=== PATIENT | female | born 1990 | race Caucasian/White ===

== ENCOUNTER 2017-06-14 09:50 | Emergency (ER) | payer MEDICAID ==
[~2017-06-14] VITALS: Ht 160 cm; Wt 100.0 kg
[~2017-06-14 09:50] MED LIST: AMOX500C42 PO
[2017-06-14] MEDS ORDERED: TAM75C PO (10:41)
[2017-06-14 12:07] VITALS: BP 140/81
== END 2017-06-14 12:08 | disposition home or self-care (01) ==
LOC: ER 09:52
DX: J02.9 Acute pharyngitis, unspecified (principal); R11.10 Vomiting, unspecified; H92.09 Otalgia, unspecified ear; R61 Generalized hyperhidrosis; R09.89 Other specified symptoms and signs involving the circulatory and respiratory systems; Z79.899 Other long term (current) drug therapy
CPT/HCPCS: 99283

== ENCOUNTER 2017-10-02 10:04 | Emergency (ER) | payer MEDICAID ==
[~2017-10-02] VITALS: Ht 160 cm; Wt 94.0 kg
[2017-10-02 10:17] VITALS: BP 132/71
[2017-10-02] MEDS ORDERED: dexamethasone 4mg tablet PO ONE (10:55)
[2017-10-02] MEDS ORDERED: FLUT16SP2 BOTHNARES (10:56)
== END 2017-10-02 11:16 | disposition home or self-care (01) ==
LOC: ER 10:04
DX: J30.2 Other seasonal allergic rhinitis (principal)
CPT/HCPCS: 99283; J8540

== ENCOUNTER 2018-03-26 19:05 | Emergency (ER) | payer MEDICAID ==
[~2018-03-26] VITALS: Ht 160 cm; Wt 94.0 kg
[~2018-03-26 19:05] MED LIST changes: +FLUT16SP2 BOTHNARES
[2018-03-26 19:55] LABS: BASOPHILS % (AUTO) 0.2 % (0-1); EOSINOPHILS # (AUTO) 0.2 X10'3 (0-0.9); EOSINOPHILS % (AUTO) 1.3 % (0-6); HEMATOCRIT 46.4 % (35.0-45.0); HEMOGLOBIN 15.3 g/dl (12.0-16.0); LYMPHOCYTES # (AUTO) 1.5 X10'3 (1.1-4.8); LYMPHOCYTES % (AUTO) 9.9 % (21-51); MEAN CORPUSCULAR HEMOGLOBIN 28.1 PG (27.0-31.0); MEAN CORPUSCULAR VOLUME 84.9 FL (78-98); MEAN PLATELET VOLUME 9.5 FL (7.4-10.4); MONOCYTES # (AUTO) 1.1 X10'3 (0-0.9); MONOCYTES % (AUTO) 7.5 % (2-12); NEUTROPHILS # (AUTO) 12.4 X10'3 (1.8-7.7); NEUTROPHILS % (AUTO) 81.1 % (42-75); PLATELET COUNT 322 X10'3 (140-440); RED BLOOD COUNT 5.46 X10'6 (4.20-5.60); RED CELL DISTRIBUTION WIDTH 13.2 % (11.5-14.5); WHITE BLOOD COUNT 15.3 X10'3 (4.5-11.0)
[2018-03-26 19:55] LABS: URINE HCG NEGATIVE (NEG)
[2018-03-26] MEDS ORDERED: ondansetron/PF 4mg/2ml inj IV ONE (20:00)
[2018-03-26] MEDS ORDERED: normal saline 1000ML IV soln IVB ONE (20:00)
[2018-03-26 20:15] LABS: PROTHROMBIN TIME 10.3 SECONDS (9.0-12.0)
[2018-03-26 20:16] LABS: ALANINE AMINOTRANSFERASE 168 U/L (12-78); ALBUMIN 3.7 G/DL (3.4-5.0); ALBUMIN/GLOBULIN RATIO 0.9 (1.1-1.5); ALKALINE PHOSPHATASE 63 IU/L (46-116); ANION GAP 8 (8-16); ASPARTATE AMINO TRANSFERASE 55 U/L (10-37); BILIRUBIN,TOTAL 0.7 MG/DL (0.1-1.0); BLOOD UREA NITROGEN 14 MG/DL (7-18); BUN/CREATININE RATIO 17.3 (6.6-38.0); CALCIUM 8.2 MG/DL (8.5-10.1); CHLORIDE 102 MMOL/L (99-107); CREATININE 0.81 MG/DL (0.40-0.90); GLUCOSE 106 MG/DL (70-104); LIPASE 109 U/L (73-393); POTASSIUM 3.7 MMOL/L (3.5-5.1); SODIUM 138 MMOL/L (135-145); TOTAL CARBON DIOXIDE 28.4 MMOL/L (24-32); eGFR 85 ML/MIN
[2018-03-26 20:41] LABS: CLARITY,URINE CLEAR (Clear); COLOR,URINE YELLOW (Yellow); GLUCOSE, URINE NEGATIVE (Neg); KETONES,URINE 15 mg/dl (Neg); LEUKOCYTE ESTERASE ,URINE NEGATIVE (Neg); NITRITES, URINE NEGATIVE (Neg); OCCULT BLOOD,URINE NEGATIVE (Neg); PH,URINE 5.5 (4.8-8.0); PROTEIN,URINE NEGATIVE (Neg); UROBILINOGEN,URINE 0.2 E.U/dL (0.2-1.0)
[2018-03-26 20:47] LABS: UA COLLECTION TYPE CLN CATCH MIDSTREAM
[2018-03-26] MEDS ORDERED: FAMO40TA73 PO (21:26)
[2018-03-26] MEDS ORDERED: ONDA4TAB9 PO (21:26)
[2018-03-26] MEDS ORDERED: proCHLORperazine 10 MG/2 ml inj IV ONE (21:30)
[2018-03-26 21:46] VITALS: BP 111/70
== END 2018-03-26 21:47 | disposition home or self-care (01) ==
LOC: ER 19:06
DX: K52.9 Noninfective gastroenteritis and colitis, unspecified (principal); E86.0 Dehydration; F17.200 Nicotine dependence, unspecified, uncomplicated
CPT/HCPCS: 36415; 76700; 80053; 81003; 81025; 83690; 85025; 85610; 96361; 96374; 96375; 99285; J0780; J2405

== ENCOUNTER 2018-08-15 19:15 | Emergency (ER) | payer MEDICAID ==
[~2018-08-15] VITALS: Ht 160 cm; Wt 92.9 kg
[~2018-08-15 19:15] MED LIST changes: -AMOX500C42 PO; +FAMO40TA73 PO; -FLUT16SP2 BOTHNARES; +ONDA4TAB6 PO
[2018-08-15] MEDS ORDERED: TAM75C PO (22:13)
[2018-08-15] MEDS ORDERED: oseltamivir phos 75mg capsule PO ONE (22:15)
[2018-08-15] MEDS ORDERED: PHE12.5T PO (22:18)
[2018-08-15] MEDS ORDERED: normal saline 1000ml 1,000 ML IV ONE (22:20)
[2018-08-15] MEDS ORDERED: acetaminophen 325mg tablet PO ONE (22:20)
[2018-08-15] MEDS ORDERED: ondansetron/PF 4mg/2ml inj IV ONE (22:20)
[2018-08-15 23:11] VITALS: BP 105/69
== END 2018-08-15 23:17 | disposition home or self-care (01) ==
LOC: ER 19:16
DX: O21.8 Other vomiting complicating pregnancy (principal); O26.891 Other specified pregnancy related conditions, first trimester; B34.9 Viral infection, unspecified; O24.111 Pre-existing type 2 diabetes mellitus, in pregnancy, first trimester; E11.9 Type 2 diabetes mellitus without complications; Z3A.12 12 weeks gestation of pregnancy; Z79.899 Other long term (current) drug therapy
CPT/HCPCS: 96374; 99283; J2405; J7030

== ENCOUNTER 2020-10-26 01:05 | Emergency (ER) | payer MEDICAID ==
[~2020-10-26] VITALS: Ht 160 cm; Wt 109.1 kg
[~2020-10-26 01:05] MED LIST changes: +PROM12.512 PO
[2020-10-26 01:08] VITALS: BP 141/105
[2020-10-26] MEDS ORDERED: PRED20TA PO (01:25)
[2020-10-26] MEDS ORDERED: dexamethasone 4mg tablet PO ONE (01:25)
[2020-10-26] MEDS ORDERED: BETA15CR4 TOP (01:25)
[2020-10-26] MEDS ORDERED: HYDR-3686 PO (01:25)
== END 2020-10-26 01:48 | disposition home or self-care (01) ==
LOC: ER 01:06
DX: L23.9 Allergic contact dermatitis, unspecified cause (principal); E11.9 Type 2 diabetes mellitus without complications; Z72.89 Other problems related to lifestyle; Z79.899 Other long term (current) drug therapy
CPT/HCPCS: 99283

== ENCOUNTER 2020-11-03 14:21 | Emergency (ER) | payer MEDICAID ==
[~2020-11-03] VITALS: Ht 160 cm; Wt 107.0 kg
[~2020-11-03 14:21] MED LIST changes: +BETA15CR4 TOP; +PRED20TA PO
[2020-11-03 14:35] VITALS: BP 126/89
[2020-11-03] MEDS ORDERED: LORA-835 PO (16:23)
[2020-11-03] MEDS ORDERED: FLUT16SP2 BOTHNARES (16:23)
== END 2020-11-03 17:11 | disposition home or self-care (01) ==
LOC: ER 14:22
DX: J30.9 Allergic rhinitis, unspecified (principal); E11.9 Type 2 diabetes mellitus without complications
CPT/HCPCS: 99283

== ENCOUNTER 2020-12-08 13:49 | Emergency (ER) | payer MEDICAID ==
[~2020-12-08] VITALS: Ht 160 cm; Wt 102.5 kg
[~2020-12-08 13:49] MED LIST changes: +FLUT16SP2 BOTHNARES; +LORA-835 PO; -PRED20TA PO
[2020-12-08 14:02] VITALS: BP 136/98
[2020-12-08] MEDS ORDERED: acetaminophen 325mg tablet PO ONE (16:25)
[2020-12-08] MEDS ORDERED: ketorolac trometh. 30mg/ml inj. IM ONE (16:25)
--- NOTE | 2020-12-08 17:30 | NUR ---
Patient seen and assessed by provider.
== END 2020-12-08 17:51 | disposition home or self-care (01) ==
LOC: ER 13:50
DX: S09.90XA Unspecified injury of head, initial encounter (principal); R42 Dizziness and giddiness; E11.9 Type 2 diabetes mellitus without complications; V87.7XXA Person injured in collision between other specified motor vehicles (traffic), initial encounter; Y93.89 Activity, other specified; Y92.89 Other specified places as the place of occurrence of the external cause; Y99.8 Other external cause status
CPT/HCPCS: 96372; 99283; J1885

== ENCOUNTER 2021-06-23 07:43 | Emergency (ER) | payer MEDICAID ==
[~2021-06-23] VITALS: Ht 160 cm; Wt 107.0 kg
[2021-06-23 08:18] VITALS: BP 129/84
== END 2021-06-23 09:29 | disposition left against medical advice (07) ==
LOC: ER 07:44
DX: M79.673 Pain in unspecified foot (principal); Z53.21 Procedure and treatment not carried out due to patient leaving prior to being seen by health care provider

== ENCOUNTER 2024-07-16 08:42 | Emergency (ER) | payer MEDICAID ==
[~2024-07-16] VITALS: Ht 160 cm; Wt 101.4 kg
[2024-07-16 08:55] VITALS: BP 155/113; PULSE 103; RESP 16; O2SAT 97
[2024-07-16] MEDS ORDERED: ONDA-243 PO (10:19)
[2024-07-16 10:27] VITALS: TEMP 97.6
== END 2024-07-16 10:29 | disposition home or self-care (01) ==
LOC: ER 08:43
DX: R11.2 Nausea with vomiting, unspecified (principal); E11.9 Type 2 diabetes mellitus without complications; F17.210 Nicotine dependence, cigarettes, uncomplicated; Y90.9 Presence of alcohol in blood, level not specified
CPT/HCPCS: 99283

== ENCOUNTER 2024-07-20 12:36 | Emergency (ER) | payer MEDICAID ==
[~2024-07-20 12:36] MED LIST changes: +ONDA-243 PO
== END 2024-07-20 14:53 | disposition left against medical advice (07) ==
LOC: ER 12:36
DX: R05.9 Cough, unspecified (principal); R50.9 Fever, unspecified; J00 Acute nasopharyngitis [common cold]; Z53.21 Procedure and treatment not carried out due to patient leaving prior to being seen by health care provider

== ENCOUNTER 2024-07-28 01:20 | Emergency (ER) | payer MEDICAID ==
[~2024-07-28] VITALS: Ht 157.5 cm; Wt 102.7 kg
[2024-07-28 01:30] VITALS: BP 161/116; PULSE 106; TEMP 98; O2SAT 99
[2024-07-28 01:38] VITALS: RESP 16
== END 2024-07-28 03:28 | disposition left against medical advice (07) ==
LOC: ER 01:22
DX: R09.81 Nasal congestion (principal); J00 Acute nasopharyngitis [common cold]; R05.9 Cough, unspecified; E11.9 Type 2 diabetes mellitus without complications; Z79.52 Long term (current) use of systemic steroids; Z79.899 Other long term (current) drug therapy; Z53.21 Procedure and treatment not carried out due to patient leaving prior to being seen by health care provider

== ENCOUNTER 2024-12-21 15:08 | Emergency (ER) | payer MEDICAID ==
[~2024-12-21] VITALS: Ht 157.5 cm; Wt 91.0 kg
[2024-12-21 15:20] VITALS: BP 151/117; PULSE 110; RESP 19; O2SAT 97
[2024-12-21] MEDS ORDERED: LOSA50TA64 PO (15:44)
--- NOTE | 2024-12-21 15:44 | Physician Documentation ---
History of Present Illness ~ Chief Complaint: Medical Clearance Stated Complaint: HIGH BP Time Seen by MD: 15:24 Primary Medical Doctor: [facility] 34-year-old female who presents for medical clearance and treatment for hypertension. 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 Patient notes a long history of this, but has not currently on medication. She does have an upcoming appointment with primary care, but not for several weeks. She denies chest pain or shortness of breath. She reports that she overall feels well. Medication Reconciliation Allergies: Coded Allergies: No Known Allergies (Unverified , 12/21/24) Scheduled Betamethasone Dipropionate (Betamethasone Dipropionate), 1 APPLIC TOP Q12H Famotidine (Pepcid), 1 TAB PO DAILY Fluticasone Propionate (Flonase), 2 SPRAYS BOTHNARES DAILY Loratadine/Pseudoephedrine (Claritin-D 24 Hour Tablet), 1 TAB PO DAILY Losartan Potassium (Losartan Potassium), 1 TAB PO DAILY Ondansetron Hcl (Zofran), 1 TAB PO Q6H Promethazine Hcl (Phenergan), 1 TAB PO Q6H Scheduled PRN ONDANSETRON ODT 4mg tablet (Ondansetron Odt), 1 TAB PO Q6H PRN PRN for nausea/vomiting Past Medical History Past Medical History: Diabetes Past Surgical History: no surgical history Alcohol Use: Sober Drug Use: none Lives with: Family Lives In: Home Occupation: employed Review of Systems ROS As stated above in the HPI, otherwise all systems are reviewed and negative. Physical Exam Vital Signs: Temperature: 98.7, Heart Rate: 110, Respiratory Rate: 19, BP: 151/117, Pulse Oximetry: 97, Weight: 91.050 Physical Exam General: Alert, no apparent distress. Neck: Full range of motion. Respiratory: Lungs clear, no respiratory distress. Chest: No accessory muscle use. Cardiovascular: Regular rate and rhythm, no murmurs. Gastrointestinal: Soft, nontender, nondistended. Bowels sounds present. Extremities: Normal range of motion, no deformity. Neurologic: Oriented x4. Psychiatric: Normal mood and affect. Skin: Normal color, warm and dry. No edema, no ecchymosis. Progress Results/Orders Results/Orders Vital Signs 12/21/24 15:20 Temp 98.7 Pulse 110 Resp 19 B/P (MAP) 151/117 Pulse Ox 97 Medical Decision Making Differential Dx:Considerations: Include CHF, Include HTN, essential, Include HTN, accelerated, Include HTN, malignant, Include HTN, encephalopathy, Include medical noncompliance, Include medication withdrawal, Include pulmonary edema, Include renal failure, Include -induced Additional Information Well-appearing 34-year-old female with no symptoms pertinent to her history of hypertension. She does have an upcoming primary care appointment. She will be started on losartan 50 mg daily. She is cleared to warmth. She is to return if worse. Departure Time of Disposition: 15:42 Disposition: 01 HOME / SELF CARE / HOMELESS Impression: Primary Impression: General medical exam Additional Impression: Hypertension Discharge Instructions: Hypertension, Adult, Medical Screening Exam Additional Instructions: Medically cleared to return to work. Start the losartan daily. See your primary care provider soon. Return to the ER if worse at any time. Referrals: NO PRIMARY CARE PROVIDER (PCP) Prescriptions Losartan Potassium (Losartan Potassium) 50 Mg Tablet 1 TAB PO DAILY for 30 Days, #30 TAB 0 Refills Prov: RUPERTO CARRANZA NP 12/21/24 Education Educated: Patient Educated regarding: diagnosis, treatment, prognosis, need for follow up Signature Scribe Signature: x Attestation: The note accurately reflects work and decisions made by me.Ruperto Carranza - KARINA 12/21/24 15:46 RUPERTO CARRANZA NP Dec 21, 2024 15:44
[2024-12-21 15:48] VITALS: TEMP 98.7
== END 2024-12-21 15:53 | disposition home or self-care (01) ==
LOC: ER 15:09
DX: I10 Essential (primary) hypertension (principal); E11.9 Type 2 diabetes mellitus without complications; Z79.899 Other long term (current) drug therapy
CPT/HCPCS: 99283

== ENCOUNTER 2025-04-22 01:20 | Emergency (ER) | payer MEDICAID ==
[~2025-04-22] VITALS: Ht 160 cm; Wt 100.0 kg
[~2025-04-22 01:20] MED LIST changes: +LOSA50TA64 PO
[2025-04-22 01:21] VITALS: TEMP 97.6
--- NOTE | 2025-04-22 02:30 | Physician Documentation ---
History of Present Illness ~ Chief Complaint: Back Pain Stated Complaint: KNEE AND BACK PAIN Time Seen by MD: 02:24 Primary Medical Doctor: GUZMAN ROCA Patient presents to the emergency room with right-sided back pain and right knee pain. She states this started two days ago when she tried to lift her mother. 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 No bladder or bowel incontinence. No weakness or paresthesias of the lower extremities. She took ibuprofen a proximally 10 hours prior to arrival. Medication Reconciliation Allergies: Coded Allergies: No Known Allergies (Unverified , 04/22/25) Scheduled Betamethasone Dipropionate (Betamethasone Dipropionate), 1 APPLIC TOP Q12H Famotidine (Pepcid), 1 TAB PO DAILY Fluticasone Propionate (Flonase), 2 SPRAYS BOTHNARES DAILY Loratadine/Pseudoephedrine (Claritin-D 24 Hour Tablet), 1 TAB PO DAILY Losartan Potassium (Losartan Potassium), 1 TAB PO DAILY Ondansetron Hcl (Zofran), 1 TAB PO Q6H Promethazine Hcl (Phenergan), 1 TAB PO Q6H Scheduled PRN ONDANSETRON ODT 4mg tablet (Ondansetron Odt), 1 TAB PO Q6H PRN PRN for nausea/vomiting Past Medical History Past Medical History: Diabetes Past Surgical History: no surgical history Alcohol Use: Sober Drug Use: none Lives with: Family Lives In: Home Occupation: employed Review of Systems ROS All review of systems negative except as per HPI Physical Exam Physical Exam Vital Signs: Temperature: 97.6, Source: Temporal, Heart Rate: 105, Respiratory Rate: 15, BP: 171/119, Pulse Oximetry: 98, Weight: 100.000 Physical Exam General: Patient is sleeping, easily arousable in no acute distress Head: Normocephalic and atraumatic. Eyes: Conjunctival normal. EOMI. PERRL. ENT: Mucous membranes moist. Neck: Supple, trachea is midline. Chest: Clear to auscultation bilaterally without rales, rhonchi, or wheezes. There is no accessory muscle use or retractions. Cardiac: RRR without murmurs, gallops, or rubs. Extremities: Normal strength. Normal range of motion. No deformities or edema. No appreciable abnormality of the knees Back: No midline spinal or CVA tenderness. Tenderness to palpation to the left SI joint Progress Results/Orders Results/Orders Orders - FELIX CONWAY MD Knee, Complete (04/22/25 01:52) Ketorolac Trometh 15mg/Ml Vial (Toradol (04/22/25 02:30) Acetaminophen 325mg Tablet (Tylenol Tabl (04/22/25 02:30) Completed Orders - FELIX CONWAY MD Knee, Complete (04/22/25 01:52) Vital Signs 04/22/25 01:21 Temp 97.6 Pulse 105 Resp 15 B/P (MAP) 171/119 Pulse Ox 98 Medical Decision Making Additional information obtaine: old records Findings Patient presents to the emergency room for evaluation of left-sided back pain along with knee pain for the past few days. Differentials include but are not limited to musculoskeletal pain, pyelonephritis, kidney stone, soft tissue injury, muscle strain, arthritis. X-ray is reassuring of the knee. Given history and physical exam I do believe patient is suffering from a muscle strain and we will treat her accordingly. The need to avoid bedrest discussed. No signs of cauda equina Differential Dx:Considerations: Bowel obstruction Departure Disposition: HOME / SELF CARE / HOMELESS Impression: Primary Impression: Strain of lumbar region Condition: Stable Additional Instructions: Ibuprofen and Tylenol for pain. Ice may be of benefit. Referrals: NO PRIMARY CARE PROVIDER (PCP) Prescriptions Cyclobenzaprine* (Cyclobenzaprine*) 10 Mg Tablet 1 TAB PO Q8H for muscle spasms for 10 Days, #30 TAB 0 Refills Prov: FELIX CONWAY MD 04/22/25 Signature Scribe Signature: No scribe Attestation: The note accurately reflects work and decisions made by me.Felix Conway MD 04/22/25 02:32 FELIX CONWAY MD Apr 22, 2025 02:30
[2025-04-22] MEDS ORDERED: CYCL-1 PO (02:32)
--- NOTE | 2025-04-22 02:43 | RADIOLOGY REPORT ---
Procedure: DI KNEE, COMP 3 VW MIN 04/22/2025 01:41 AM TECHNIQUE: DI KNEE, COMP 3 VW MIN Indication: KNEE PAIN left Comparison: None FINDINGS: Bones: No acute fracture or dislocation. Joint spaces are maintained. Soft tissues: Unremarkable. No radiopaque foreign body. IMPRESSION: 1. No acute osseous abnormality.
[2025-04-22] MEDS: ketorolac trometh 15mg/ml vial 15 MG/ML ML IM ONE (02:47)
[2025-04-22 02:55] VITALS: BP 142/68; PULSE 68; RESP 16; O2SAT 98
== END 2025-04-22 02:56 | disposition home or self-care (01) ==
LOC: ER 01:20
DX: S39.012A Strain of muscle, fascia and tendon of lower back, initial encounter (principal); M25.562 Pain in left knee; E11.9 Type 2 diabetes mellitus without complications; F10.90 Alcohol use, unspecified, uncomplicated; X58.XXXA Exposure to other specified factors, initial encounter; Y93.89 Activity, other specified; Y92.89 Other specified places as the place of occurrence of the external cause; Y99.8 Other external cause status; Y90.9 Presence of alcohol in blood, level not specified
CPT/HCPCS: 73564; 96372; 99283; J1885